=== PATIENT | male | born 1980 | race Caucasian/White ===

== ENCOUNTER 2020-02-08 02:11 | Emergency (ER) | payer SELFPAY ==
[2020-02-08 02:59] LABS: ABSOLUTE BASOPHILS # (AUTO) 0.1 10^3/uL (0.0-0.2); ABSOLUTE EOSINOPHILS # (AUTO) 0.1 10^3/uL (0.0-0.6); ABSOLUTE LYMPHOCYTES (AUTO) 2.7 10^3/uL (0.5-4.7); ABSOLUTE MONOCYTES (AUTO) 1.3 10^3/uL (0.1-1.4); ABSOLUTE NEUT (AUTO) 8.3 10^3/uL (1.7-8.2); BASOPHILS % (AUTO) 0.4 % (0-2); EOSINOPHILS % (AUTO) 1.1 % (0-6); HEMOGLOBIN 14.4 g/dL (13.5-17.0); LYMPHOCYTES % (AUTO) 21.4 % (13-45); MEAN CORPUSCULAR HEMOGLOBIN 31.7 pg (27.0-33.4); MEAN CORPUSCULAR HGB CONC 35.2 g/dL (32.0-36.0); MEAN CORPUSCULAR VOLUME 90 fl (80-97); MONOCYTES % (AUTO) 10.4 % (3-13); PLATELET COUNT 332 10^3/uL (150-450); RED BLOOD COUNT 4.55 10^6/uL (4.35-5.55); RED CELL DISTRIBUTION WIDTH 12.8 % (11.5-14.0); SEGMENTED NEUTROPHILS % (AUTO) 66.7 % (42-78); TOTAL CELLS COUNTED % (AUTO) 100 %; WHITE BLOOD COUNT 12.4 10^3/uL (4.0-10.5)
[2020-02-08 03:11] LABS: ALBUMIN 4.6 g/dL (3.5-5.0); ALKALINE PHOSPHATASE 102 U/L (38-126); ANION GAP 10 (5-19); ASPARTATE AMINO TRANSFERASE 22 U/L (17-59); BILIRUBIN,TOTAL 0.4 mg/dL (0.2-1.3); BLOOD UREA NITROGEN 30 mg/dL (7-20); CALCIUM 9.4 mg/dL (8.4-10.2); CARBON DIOXIDE 25 mmol/L (22-30); CHLORIDE 102 mmol/L (98-107); GLUCOSE 116 mg/dL (75-110); POTASSIUM 3.8 mmol/L (3.6-5.0); TOTAL PROTEIN 7.5 g/dL (6.3-8.2)
[2020-02-08 03:16] LABS: ALCOHOL < 10 mg/dL (NONE DETECTED)
[2020-02-08] MEDS ORDERED: ALPRAZOLAM 0.5 MG TABLET PO ONE (03:42)
[2020-02-08] MEDS ORDERED: ONDANSETRON HCL INJ/PF 4 MG/2 ML SDV IV ONE (03:43)
[2020-02-08] MEDS ORDERED: NORMAL SALINE 1000 ML 1,000 ML IV ONE (03:43)
--- NOTE | 2020-02-08 03:52 | ER Document Report ---
Entered by ALEXA ARRINGTON SCRIBE 02/08/20 0349 Acting as scribe for:CHIKA GODDARD IV, MD ED Seizure - General Chief Complaint: Probable Seizure Stated Complaint: SEIZURE Time Seen by Provider: 02/08/20 03:28 Primary Care Provider: CECI DICKERSON MD [ACTIVE STAFF] - Follow up as needed Mode of Arrival: Medic Information source: Patient, Emergency Med Personnel Notes: This 39 year old male patient with a history of anxiety, depression, and seizures brought in by EMS from home presents to the ED today with complaints of probable seizure. EMS reports that the patient's significant other called EMS after witnessing x3 episodes of seizure-like activity just prior to arrival. EMS administered 2.5 mg Versed and 500 ml Normal Saline. Patient states that he is compliant with his seizure medications and that the dosage was just recently increased. He also admits that he "ran short" on his Xanax, and that withdrawal may have been the cause of his seizures today. He also notes nausea and vomiting. - Related Data Allergies/Adverse Reactions: No Known Allergies Allergy (Verified 02/07/15 15:21) Home Medications: Fluoxetine 40mg. Lamotrigine 100mg. Propanolol 80mg. Mirtazipine 45mg Past Medical History - General Information source: Patient - Social History Smoking Status: Current Some Day Smoker Cigarette use (# per day): Yes Chew tobacco use (# tins/day): No Smoking Education Provided: No Lives with: Spouse/Significant other Family History: Reviewed & Not Pertinent, Hypertension Patient has suicidal ideation: No Patient has homicidal ideation: No - Past Medical History Cardiac Medical History: Reports: Hx Hypertension Neurological Medical History: Reports: Hx Seizures Renal/ Medical History: Reports: Hx Kidney Stones Psychiatric Medical History: Reports: Hx Anxiety, Hx Depression Past Surgical History: Reports: Hx Orthopedic Surgery - finger surgery, tendon repair - Immunizations Hx Diphtheria, Pertussis, Tetanus Vaccination: Yes Hx Pneumococcal Vaccination: 07/12/11 Review of Systems - Review of Systems Constitutional: No symptoms reported EENT: No symptoms reported Cardiovascular: No symptoms reported Respiratory: No symptoms reported Gastrointestinal: See HPI, Nausea, Vomiting Genitourinary: No symptoms reported Male Genitourinary: No symptoms reported Musculoskeletal: No symptoms reported Skin: No symptoms reported Hematologic/Lymphatic: No symptoms reported Neurological/Psychological: See HPI, Seizure -: Yes All other systems reviewed and negative Physical Exam - Vital signs Vitals: Temp 99.2 F 02/08/20 02:11 - General General appearance: Alert In distress: None - HEENT Head: Normocephalic, Atraumatic Eyes: Normal Pupils: PERRL - Respiratory Respiratory status: No respiratory distress Chest status: Nontender Breath sounds: Normal Chest palpation: Normal - Cardiovascular Rhythm: Regular Heart sounds: Normal auscultation Murmur: No Friction rub: No Gallop: None auscultated - Abdominal Inspection: Normal Distension: No distension Bowel sounds: Normal Tenderness: Nontender - Abdomen soft Organomegaly: No organomegaly - Back Back: Normal, Nontender - Extremities General upper extremity: Normal inspection General lower extremity: Normal inspection - Neurological Neuro grossly intact: Yes Orientation: AAOx4 [place] Coma Scale Eye Opening: Spontaneous [place] Coma Scale Verbal: Oriented [place] Coma Scale Motor: Obeys Commands [place] Coma Scale Total: 15 - Psychological Associated symptoms: Normal affect, Normal mood - Skin Skin Temperature: Warm Skin Moisture: Dry Skin Color: Normal Course - Re-evaluation Re-evalutation: 02/08/20 04:48 Results of ED MSE discussed with patient. All questions were answered prior to discharge. Emergency signs and symptoms, reasons to return to the emergency department discussed with patient. - Vital Signs Vital signs: Temp Pulse Resp BP Pulse Ox 99.2 F 12 132/79 H 94 02/08/20 02:11 02/08/20 04:18 02/08/20 04:18 02/08/20 04:18 - Laboratory Result Diagrams: 02/08/20 02:19 02/08/20 02:19 Laboratory results interpreted by me: 02/08/20 02/08/20 02/08/20 02:19 02:19 03:29 WBC 12.4 H Absolute Neuts (auto) 8.3 H BUN 30 H Creatinine 1.30 H Glucose 116 H Urine Ketones 20 H - Diagnostic Test Radiology reviewed: Reports reviewed Discharge - Discharge Clinical Impression: Seizure disorder Condition: Good Disposition: HOME, SELF-CARE Additional Instructions: Return to the Emergency Department without delay if any worse. HOME CARE INSTRUCTIONS & INFORMATION: Thank you for choosing us for your medical needs. We hope you're satisfied with the care you received. After you leave, you must properly care for your problem and, at the same time, observe its progress. Any condition can change. Some illnesses can change rapidly over hours or days. If your condition worsens, return to the Emergency Department or see your physician promptly. ABOUT YOUR X-RAYS AND EKG'S: If you had an EKG or X-rays taken, they have been read by the Emergency Physician. The X-rays and EKG's will also be read by a Radiologist or Psychologist Private Practice within 24 hours. If discrepancies are noted, you will be notified by telephone. Please be certain the ED has a correct telephone number & address where you can be reached. Also, realize that some fractures or abnormalities do not show up on initial X-rays. If your symptoms continue, see your physician. ABOUT YOUR LABORATORY TEST: If you had laboratory tests, the results have been reviewed by the Emergency Physician. Some test results (for example cultures) may not be available for several days. You will be contacted if any test result shows you need additional treatment. Please be certain the ED has a correct telephone number and address where you can be reached. ABOUT YOUR MEDICATIONS: You will receive instructions on how to take your medicine on the prescription label you receive. Additional information may be provided by the Pharmacy. If you have questions afterwards, call the ED for clarification or further instructions. Some prescribed medications may cause drowsiness. Do not perform tasks such as driving a car or operating machinery without consulting your Pharmacist. If you feel you need a refill of pain medication, your condition will need re-evaluation. Please do not call for a refill of any medication. ABOUT YOUR SIGNATURE: Signature of this document acknowledges to followin. Understanding that you received emergency treatment and that you may be released before al medical problems are known or treated. Please be certain the ED has a correct phone number & address where you can be reached. 2. Acknowledgement that you will arrange for follow-up care as recommended. 3. Authorization for the Emergency Physician to provide information to your follow-up Physician in order to maximize your care. AT ANY TIME, IF YOUR SYMPTOMS CHANGE SIGNIFICANTLY OR WORSEN OR YOU DEVELOP NEW SYMPTOMS, RETURN TO THE EMERGENCY DEPARTMENT IMMEDIATELY FOR RE-EVALUATION. OUR GOAL IS TO PROVIDE EXCELLENT MEDICAL CARE! WE HOPE THAT WE HAVE MET YOUR EXPECTATIONS DURING YOUR EMERGENCY DEPARTMENT VISIT AND THAT YOU FEEL YOU HAVE RECEIVED EXCELLENT CARE! Seizure, Known Epileptic You have had a seizure. Seizures may "break through" in an epileptic due to stress of infection or injury, a change in blood chemistry, or drug and alcohol use. Another common cause is failure to take medication as prescribed. Your doctor has evaluated your situation for the likely cause of this seizure. It is important that you follow his advice concerning any medication changes and follow-up care. Further testing of anti-seizure medication levels in your blood may be necessary. If you have a inventory associate and driver's license, it's important that you DO NOT DRIVE until given permission by your physician. This seizure must be reported to the inventory associate and driver's license bureau. Call the doctor or return if seizures recur, or if new or unusual symptoms arise -- such as severe headache, confusion, excessive sleepiness, local weakness or numbness, neck stiffness, or fever. Prescriptions: Alprazolam [Xanax] 1 mg PO QID 2 Days #8 tablet Referrals: CECI DICKERSON MD [ACTIVE STAFF] - Follow up as needed I personally performed the services described in the documentation, reviewed and edited the documentation which was dictated to the scribe in my presence, and it accurately records my words and actions.
[2020-02-08 03:59] LABS: APPEARANCE,URINE CLEAR; BILIRUBIN,URINE NEGATIVE (NEGATIVE); COLOR,URINE YELLOW; GLUCOSE, URINE NEGATIVE (NEGATIVE); KETONES,URINE 20 mg/dL (NEGATIVE); LEUKOCYTE ESTERASE,URINE NEGATIVE (NEGATIVE); NITRITE,URINE NEGATIVE (NEGATIVE); PROTEIN,URINE NEGATIVE (NEGATIVE); URINE SPECIFIC GRAVITY 1.023; UROBILINOGEN,URINE NEGATIVE mg/dL (<2.0)
[2020-02-08 04:17] LABS: URINE AMPHETAMINES SCREEN NEGATIVE; URINE BARBITURATES SCREEN NEGATIVE; URINE COCAINE SCREEN NEGATIVE; URINE MARIJUANA (THC) SCREEN NEGATIVE; URINE METHADONE SCREEN NEGATIVE; URINE PHENCYCLIDINE SCREEN NEGATIVE
[2020-02-08 04:24] LABS: URINE BENZODIAZEPINES SCREEN UNCONFIRMED POSITIVE
--- NOTE | 2020-02-08 04:24 | RADIOLOGY REPORT (SQ) ---
CLINICAL HISTORY: seizure COMPARISON: None. TECHNIQUE: CT HEAD WITHOUT IV CONTRAST on 02/08/2020 3:37 AM CDT This exam was performed according to our departmental dose-optimization program, which includes automated exposure control, adjustment of the mA and/or kV according to patient size and/or use of iterative reconstruction technique. FINDINGS: There is no acute hemorrhage, mass effect or midline shift. St-white differentiation is preserved. There is no hydrocephalus. There is no significant volume loss for age. The calvarium is intact. Orbits and globes are unremarkable. The paranasal sinuses are clear. Mastoid air cells are clear. IMPRESSION: No acute intracranial findings.
--- NOTE | 2020-02-08 05:02 | RADIOLOGY REPORT (SQ) ---
EXAM DESCRIPTION: X-ray single view chest. CLINICAL HISTORY: 39 years Male, ams COMPARISON: 05/17/2013 TECHNIQUE: Single portable x-ray view of the chest performed on 02/08/2020 at 4:06 AM FINDINGS: The lungs are well expanded and are clear. There is no evidence of a pneumothorax. The cardiac silhouette is normal in size and configuration. The mediastinal contours are normal. No acute osseous abnormality is identified. No focal soft tissue abnormalities are seen. Lines and tubes: None. IMPRESSION: No evidence of acute intrathoracic disease.
[2020-02-08 05:50] VITALS: BP 122/92
--- NOTE | 2020-02-08 07:28 | EKG REPORT ---
SEVERITY:- BORDERLINE ECG - SINUS RHYTHM BORDERLINE T WAVE ABNORMALITIES , UNCHANGED FROM 05/17/13 EKG : Confirmed by: Rishi Johnson MD 08-Feb-2020 07:28:00
== END 2020-02-08 05:45 | disposition home or self-care (01) ==
LOC: ER 02:11
DX: G40.909 Epilepsy, unspecified, not intractable, without status epilepticus (principal); R11.2 Nausea with vomiting, unspecified; F41.9 Anxiety disorder, unspecified; F32.9 Major depressive disorder, single episode, unspecified; Z79.899 Other long term (current) drug therapy; F17.210 Nicotine dependence, cigarettes, uncomplicated; I10 Essential (primary) hypertension
CPT/HCPCS: 93005; 99285; 96361; 96374; 36415; 80307 ×2; 83735; 85025; 80053; 81001; 71045; 70450; 93010; J2405; J7030

== ENCOUNTER 2020-02-08 13:40 | Inpatient (IN) | payer SELFPAY ==
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
[2020-02-08] MEDS: NORMAL SALINE 1000 ML 1,000 ML IV PRN ×3 (15:34→21:14)
[2020-02-08 15:37] LABS: ABSOLUTE BASOPHILS # (AUTO) 0.1 10^3/uL (0.0-0.2); ABSOLUTE EOSINOPHILS # (AUTO) 0.1 10^3/uL (0.0-0.6); ABSOLUTE LYMPHOCYTES (AUTO) 1.3 10^3/uL (0.5-4.7); BASOPHILS % (AUTO) 0.5 % (0-2); EOSINOPHILS % (AUTO) 0.5 % (0-6); HEMATOCRIT 39.9 % (37.9-51.0); HEMOGLOBIN 14.1 g/dL (13.5-17.0); LYMPHOCYTES % (AUTO) 10.1 % (13-45); MEAN CORPUSCULAR HEMOGLOBIN 31.8 pg (27.0-33.4); MEAN CORPUSCULAR HGB CONC 35.4 g/dL (32.0-36.0); MEAN CORPUSCULAR VOLUME 90 fl (80-97); MONOCYTES % (AUTO) 8.4 % (3-13); PLATELET COUNT 318 10^3/uL (150-450); RED BLOOD COUNT 4.44 10^6/uL (4.35-5.55); RED CELL DISTRIBUTION WIDTH 12.8 % (11.5-14.0); SEGMENTED NEUTROPHILS % (AUTO) 80.5 % (42-78); TOTAL CELLS COUNTED % (AUTO) 100 %; WHITE BLOOD COUNT 12.5 10^3/uL (4.0-10.5)
[2020-02-08 15:54] LABS: ANION GAP 9 (5-19); BLOOD UREA NITROGEN 22 mg/dL (7-20); CALCIUM 9.1 mg/dL (8.4-10.2); CARBON DIOXIDE 24 mmol/L (22-30); CHLORIDE 104 mmol/L (98-107); GLUCOSE 101 mg/dL (75-110); POTASSIUM 3.7 mmol/L (3.6-5.0)
[2020-02-08 15:57] LABS: ALCOHOL < 10 mg/dL (NONE DETECTED)
[2020-02-08 16:17] LABS: APPEARANCE,URINE CLEAR; BILIRUBIN,URINE NEGATIVE (NEGATIVE); COLOR,URINE YELLOW; GLUCOSE, URINE NEGATIVE (NEGATIVE); KETONES,URINE TRACE mg/dL (NEGATIVE); PROTEIN,URINE NEGATIVE (NEGATIVE); URINE SPECIFIC GRAVITY 1.013; UROBILINOGEN,URINE NEGATIVE mg/dL (<2.0)
[2020-02-08 16:35] LABS: URINE AMPHETAMINES SCREEN NEGATIVE; URINE BARBITURATES SCREEN NEGATIVE; URINE COCAINE SCREEN NEGATIVE; URINE MARIJUANA (THC) SCREEN NEGATIVE; URINE METHADONE SCREEN NEGATIVE; URINE PHENCYCLIDINE SCREEN NEGATIVE
[2020-02-08 16:36] LABS: URINE BENZODIAZEPINES SCREEN UNCONFIRMED POSITIVE
[2020-02-08] MEDS ORDERED: KETOROLAC TROMETHAMINE INJ/PF 30 MG/1 ML SDV IV ONE (16:51)
[2020-02-08] MEDS ORDERED: CHOLECALCIFEROL 50000 UNIT PO SCH (19:15)
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
[2020-02-08] MEDS ORDERED: ERGOCALCIFEROL (VITAMIN D2) 50000 UNIT (1.25 MG) CAPSULE PO SCH (20:00)
--- NOTE | 2020-02-08 20:03 | EKG REPORT ---
SEVERITY:- BORDERLINE ECG - SINUS RHYTHM BORDERLINE T ABNORMALITIES, ANT-LAT LEADS : Confirmed by: Rishi Johnson MD 08-Feb-2020 20:02:54
[2020-02-08] MEDS: FLUOXETINE HCL 20 MG CAPSULE PO SCH (21:13)
[2020-02-08] MEDS: ALPRAZOLAM 0.5 MG TABLET PO SCH (21:13)
[2020-02-08] MEDS: PROPRANOLOL HCL 40 MG TABLET PO SCH (21:54)
[2020-02-08] MEDS ORDERED: MIRTAZAPINE 15 MG TABLET PO ONE (23:00)
[2020-02-09] MEDS ORDERED: (PENDING PHARMACY ID) (Propranolol Hcl [Propranolol Hcl Er] 80 MG) PO SCH (10:00)
[2020-02-09] MEDS ORDERED: (PENDING PHARMACY ID) (Fluoxetine Hcl [Fluoxetine Hcl] 80 MG) PO SCH (10:00)
[2020-02-09] MEDS: ALPRAZOLAM 0.5 MG TABLET PO SCH ×4 (10:37→22:04)
[2020-02-09] MEDS: FLUOXETINE HCL 20 MG CAPSULE PO SCH ×2 (10:37→22:03)
[2020-02-09] MEDS: PROPRANOLOL HCL 40 MG TABLET PO SCH ×2 (10:37→22:04)
[2020-02-09] MEDS ORDERED: AMLODIPINE BESYLATE 10 MG TABLET PO ONE (13:26)
[2020-02-09] MEDS ORDERED: VALSARTAN 160 MG TABLET PO ONE (13:26)
[2020-02-09] MEDS ORDERED: ONDANSETRON HCL INJ/PF 4 MG/2 ML SDV IV PRN (13:43)
--- NOTE | 2020-02-09 13:43 | PDOC PROGRESS REPORT ---
Subjective Progress Note for:: 02/09/20 Subjective:: Other laboratory discussion about patient's presentation. He does certainly to me that he has a history of traumatic brain injury, PTSD and on chronic benzos. Patient states he had a seizure within 24-48hrs hours prior to presentation and subsequently has been ataxic. He also states he was taking 400mg bid of lamictal. Reason For Visit: POSSIBLE LAMOTRIGINE TOXICITY Physical Exam Vital Signs: Temp Pulse Resp BP Pulse Ox 98.3 F 74 16 134/97 H 97 02/09/20 12:21 02/09/20 12:21 02/09/20 12:21 02/09/20 12:21 02/09/20 12:21 Intake & Output 02/08/20 02/09/20 02/10/20 06:59 06:59 06:59 Intake Total 1699 240 Output Total 200 1075 Balance 1499 -835 General appearance: PRESENT: no acute distress, cooperative Respiratory exam: PRESENT: symmetrical, unlabored. ABSENT: accessory muscle use, retraction, tachypnea Cardiovascular exam: ABSENT: tachycardia GI/Abdominal exam: PRESENT: soft. ABSENT: rebound, rigid, tenderness Neurological exam: PRESENT: alert, awake, oriented to person, oriented to place, oriented to time, oriented to situation, motor sensory deficit, other - Seems a little bit slow when talking. Psychiatric exam: PRESENT: anxious. ABSENT: agitated Results Laboratory Results: 02/08/20 13:59 02/08/20 13:59 02/08/20 02/08/20 02/08/20 13:59 13:59 15:58 WBC 12.5 H RBC 4.44 Hgb 14.1 Hct 39.9 MCV 90 MCH 31.8 MCHC 35.4 RDW 12.8 Plt Count 318 Seg Neutrophils % 80.5 H Sodium 137.0 Potassium 3.7 Chloride 104 Carbon Dioxide 24 Anion Gap 9 BUN 22 H Creatinine 1.05 Est GFR ( Amer) > 60 Glucose 101 Calcium 9.1 Magnesium 2.4 H Urine Color YELLOW Urine Appearance CLEAR Urine pH 6.0 Ur Specific [place] 1.013 Urine Protein NEGATIVE Urine Glucose (UA) NEGATIVE Urine Ketones TRACE H Urine Blood NEGATIVE Assessment and Plan - Diagnosis (1) Ataxia Is this a current diagnosis for this admission?: Yes Plan: I had physical therapy evaluate patient and he noted patient was still significantly ataxic. Will check orthostatics. Ataxia and falls were suspected to be due to patient taking excessive doses of Lamictal. Head CT on 02/07 was negative but if ataxia persist by tomorrow, will need to get a MRI of the brain to rule out other structural etiologies. (2) Drug toxicity Is this a current diagnosis for this admission?: Yes Plan: Patient has apparently been taking 400 mg twice daily of Lamictal which is well above the maximum recommended dosage. Lamictal is currently on hold. It is possible that overuse of this medication could be contributing to his ataxia, fogginess. He also states he has history of traumatic brain injury but that this ataxia is relatively new for him. I will continue to monitor. Receiving IV fluid hydration. (3) Seizure disorder Is this a current diagnosis for this admission?: Yes Plan: We will resume Lamictal tomorrow at reduced dose of 200 mg twice daily. I recommended to patient to see a neurologist who should be managing his symptoms. Xanax dose has been resumed yesterday at 1mg 4 times daily dosing. I have also counseled patient against decreasing his Xanax dose from 4 mg to 2 mg daily abruptly without informing his doctor as this could lead to withdrawal seizures which patient may have experienced. I will check a CK level. (4) Anxiety Is this a current diagnosis for this admission?: Yes Plan: He is on fluoxetine, propranolol, and Xanax. Those have been resumed - Time Time Spent with patient: 15-24 minutes
[2020-02-09] MEDS: NORMAL SALINE 1000 ML 1,000 ML IV PRN (19:42)
[2020-02-09] MEDS ORDERED: MIRTAZAPINE 15 MG TABLET PO SCH (22:00)
[2020-02-10 05:45] LABS: HEMATOCRIT 37.6 % (37.9-51.0); HEMOGLOBIN 13.1 g/dL (13.5-17.0); MEAN CORPUSCULAR HEMOGLOBIN 31.7 pg (27.0-33.4); MEAN CORPUSCULAR HGB CONC 34.7 g/dL (32.0-36.0); MEAN CORPUSCULAR VOLUME 91 fl (80-97); PLATELET COUNT 262 10^3/uL (150-450); RED BLOOD COUNT 4.12 10^6/uL (4.35-5.55); WHITE BLOOD COUNT 9.1 10^3/uL (4.0-10.5)
[2020-02-10] MEDS: NORMAL SALINE 1000 ML 1,000 ML IV PRN (05:59)
[2020-02-10] MEDS ORDERED: ACETAMINOPHEN 325 MG TABLET PO PRN (06:26)
[2020-02-10] MEDS ORDERED: VALSARTAN 160 MG TABLET PO SCH (10:00)
[2020-02-10] MEDS ORDERED: AMLODIPINE BESYLATE 10 MG TABLET PO SCH (10:00)
[2020-02-10] MEDS: PROPRANOLOL HCL 40 MG TABLET PO SCH (10:41)
[2020-02-10] MEDS: ALPRAZOLAM 0.5 MG TABLET PO SCH ×3 (10:41→17:48)
[2020-02-10] MEDS: FLUOXETINE HCL 20 MG CAPSULE PO SCH (10:41)
--- NOTE | 2020-02-10 17:43 | RADIOLOGY REPORT (SQ) ---
EXAM DESCRIPTION: MRI HEAD COMBO IMAGES COMPLETED DATE/TIME: 02/10/2020 4:18 pm REASON FOR STUDY: new onset ataxia, blurred vision. hx of TBI. COMPARISON: None. TECHNIQUE: Multiplanar imaging includes noncontrasted T1, T2, FLAIR, diffusion with ADC map and post gadolinium contrast T1 sequences. Images stored on PACS. CONTRAST TYPE AND DOSE: 15 mL ProHance RENAL FUNCTION: Not indicated. ACR Type II contrast agent associated with few, if any, unconfounded cases of NSF LIMITATIONS: None. FINDINGS: ANATOMY: No anomalies. Normal vascular flow voids. Pituitary fossa normal. CSF SPACES: Normal in size and contour. No hemorrhage. CEREBRUM: Sulci and gyri normal in size and contour. Normal white matter signal on FLAIR imaging. No evidence of hemorrhage, mass, or extraaxial fluid collection. No abnormal enhancement post contrast. POSTERIOR FOSSA: No signal alteration. No hemorrhage. No edema, masses, or mass effect. Internal leti tory canals, cerebellopontine angles, mastoids normal. No enhancing lesions. No abnormal enhancement post contrast. DIFFUSION IMAGING: Negative for acute or subacute infarction. ORBITS: No masses. Globes normal. PARANASAL SINUSES: No fluid levels. Mucosa normal. OTHER: Very tiny Tornwaldt cyst. IMPRESSION: 1. NORMAL MRI OF THE BRAIN WITHOUT AND WITH INTRAVENOUS GADOLINIUM CONTRAST. EVIDENCE OF ACUTE STROKE: NO. COMMENT: 1. The results of this examination were discussed with the patient's provider on 02/10/2020 at 17:36 hours. TECHNICAL DOCUMENTATION: JOB ID: [id number] 2010 [employer]- All Rights Reserved Reading location - IP/workstation name: [email or web address]
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
[2020-02-10 18:00] VITALS: BP 98/57
== END 2020-02-10 18:51 | disposition home health service (06) | DRG 918 ==
LOC: ER 13:40 → EH 19:20 → 4N 20:33 → OBSVTOIN 02-10 15:11
PROVIDERS: ADMIT Family Medicine; ATTEND Internal Medicine
DX: T42.6X1A Poisoning by other antiepileptic and sedative-hypnotic drugs, accidental (unintentional), initial encounter (principal); F13.20 Sedative, hypnotic or anxiolytic dependence, uncomplicated; R27.0 Ataxia, unspecified; G40.909 Epilepsy, unspecified, not intractable, without status epilepticus; F41.9 Anxiety disorder, unspecified; S00.83XA Contusion of other part of head, initial encounter; W18.30XA Fall on same level, unspecified, initial encounter; Y92.89 Other specified places as the place of occurrence of the external cause; E87.8 Other disorders of electrolyte and fluid balance, not elsewhere classified; H53.8 Other visual disturbances; I10 Essential (primary) hypertension; F32.9 Major depressive disorder, single episode, unspecified; F43.10 Post-traumatic stress disorder, unspecified; Z87.820 Personal history of traumatic brain injury; Z79.899 Other long term (current) drug therapy
CPT/HCPCS: 36415; 70553; 80175; 80307; 81001; 82550; 83735; 85027; 93005; 93010; 96361; 96374; 99285; A9576; G0378; J1885; J3490; J7030